=== PATIENT | female | born 1965 | race Caucasian/White ===

== ENCOUNTER 2022-10-04 15:13 | Emergency (ER) | payer OTHER ==
[2022-10-04] MEDS ORDERED: Boostrix 0.5 ML (Tdap) VIAL (>/=7 yrs of age) ONE (15:47)
[2022-10-04] MEDS ORDERED: Ketorolac Tromethamine 30 MG/ML VIAL ONE (15:48)
[2022-10-04] MEDS ORDERED: Lidocaine 1% (PF) 30 ML VIAL ONE (16:08)
== END 2022-10-04 16:43 | disposition home or self-care (01) ==
LOC: NAV ERS 15:13
DX: S61.442A Puncture wound with foreign body of left hand, initial encounter (principal); E78.00 Pure hypercholesterolemia, unspecified; W22.8XXA Striking against or struck by other objects, initial encounter; Z23 Encounter for immunization
CPT/HCPCS: 90471; 90715; 96372; J1885; J2001